=== PATIENT | female | born 1990 | race Caucasian/White ===

== ENCOUNTER 2021-10-06 14:43 | Emergency (ER) | payer BC, MEDICAID ==
[~2021-10-06] VITALS: Ht 167.6 cm; Wt 109.1 kg
[2021-10-06 15:16] VITALS: BP 145/86; TEMP 97.9
[2021-10-06 17:14] VITALS: PULSE 100
== END 2021-10-06 17:12 | disposition home or self-care (01) ==
LOC: COL.ER 14:43
DX: S93.401A Sprain of unspecified ligament of right ankle, initial encounter (principal); Z28.311 Partially vaccinated for COVID-19; X50.1XXA Overexertion from prolonged static or awkward postures, initial encounter; Y93.01 Activity, walking, marching and hiking